=== PATIENT | male | born 1965 | race African-American/Black ===

== ENCOUNTER 2017-02-06 20:23 | Emergency (ER) | payer SELFPAY ==
[~2017-02-06] VITALS: Ht 180.3 cm; Wt 99.8 kg
[2017-02-06] MEDS ORDERED: NKM (21:10)
[2017-02-06] MEDS ORDERED: Norco 5mg/325mg tab ORAL ONE (21:30)
[2017-02-06] MEDS ORDERED: Tetanus/Diptheria/Pertussis Vaccine 0.5ml Syr IM ONE (21:30)
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
[2017-02-06] MEDS ORDERED: cloNIDine 0.2mg Tab ORAL ONE (21:45)
[2017-02-06] MEDS ORDERED: HYDROCODON-ACE1 EA15 ORAL (21:59)
[2017-02-06] MEDS ORDERED: NORVASC10 MG ORAL (21:59)
[2017-02-06 22:15] VITALS: BP 178/98
[2017-02-07 01:01] VITALS: BP 178/98
--- NOTE | 2017-02-07 10:21 | Diagnostic Imaging Report ---
Indications: Left foot trauma, pain Technique: 3 views left foot Findings: Comparison: None Linear lucency traverses the base of the first metatarsal, apparently mildly comminuted. Fracture may extend to the proximal articular surface. No additional fracture, dislocation, joint space widening, soft tissue gas or foreign body, or other acute change identified. IMPRESSION: Apparent fracture base first metatarsal
== END 2017-02-06 22:40 | disposition home or self-care (01) ==
LOC: EMR 22:38
DX: S90.32XA Contusion of left foot, initial encounter (principal); I10 Essential (primary) hypertension; S40.812A Abrasion of left upper arm, initial encounter; Z23 Encounter for immunization; V28.4XXA Motorcycle driver injured in noncollision transport accident in traffic accident, initial encounter; Y92.410 Unspecified street and highway as the place of occurrence of the external cause
CPT/HCPCS: 90471; 90715; 99284

== ENCOUNTER 2018-12-09 18:12 | Emergency (ER) | payer MEDICAID, OTHER ==
[~2018-12-09] VITALS: Ht 177.8 cm; Wt 102.1 kg
[~2018-12-09 18:12] MED LIST: HYDROCODON-ACE1 EA15 ORAL; NKM; NORVASC10 MG ORAL
[2018-12-09] MEDS ORDERED: UNOBMED (18:18)
[2018-12-09 18:23] VITALS: BP 159/102
[2018-12-09] MEDS ORDERED: PERIDEX15 ML MM (18:33)
[2018-12-09] MEDS ORDERED: IBUPROFEN600 MG ORAL (18:33)
[2018-12-09] MEDS ORDERED: AMOXICILLIN500 MG ORAL (18:33)
[2018-12-09] MEDS ORDERED: NORCO 5-325 TA1 EACH ORAL (18:33)
--- NOTE | 2018-12-09 18:41 | NUR ---
ER DISCHARGE NOTE: Patient is cleared to be discharged per ERMD, pt is aox4, on room air, with stable vital signs. pt was given dc and prescription instructions, pt was able to verbalize understanding, pt is able to ambulate with steady gait. pt took all belongings.
--- NOTE | 2018-12-09 18:41 | Emergency Room Report ---
History of Present Illness General Chief Complaint: Pain Source: Medical Record Present Illness HPI Patient presents to the emergency department today complaining of left jaw pain. Patient states that he has history of dental caries. He thinks that his left upper molar is loose. He states that he has been grinding his teeth. He has been under a lot of stress. He is been waking up middle night with dental pain. Denies any difficulty with swallowing. Denies any neck pain chest pain or shortness of breath. Denies any nausea vomiting diarrhea chills. Complains of right-sided facial pain because of this jaw pain. No other complaints were noted. Symptoms noted to be moderate. Patient states that he will see a dentist but would like some pain relief at this time.. No other modifying factors. No other associated signs and symptoms. No other complaints were noted. Allergies: Coded Allergies: No Known Allergies (Unverified , 02/06/17) Patient History Past Surgical History: none Pertinent Family History: none Social History: Denies: smoking, alcohol use, drug use Reviewed Nursing Documentation: PMH: Agreed; PSxH: Agreed Nursing Documentation-PMH Past Medical History: No History, Except For Hx Hypertension: Yes Review of Systems All Other Systems: negative except mentioned in HPI Physical Exam Vital Signs Date Time Temp Pulse Resp B/P (MAP) Pulse Ox O2 Delivery O2 Flow Rate FiO2 12/09/18 18:16 98.2 97 16 95 Room Air 12/09/18 18:23 159/102 Sp02 EP Interpretation: reviewed, normal General Appearance: normal inspection, well appearing, no apparent distress, alert Head: atraumatic Eyes: bilateral eye normal inspection ENT: hearing grossly normal, normal voice, other - Left upper dental caries Neck: normal inspection, full range of motion, supple, no bony tend Respiratory: normal inspection, lungs clear, normal breath sounds, no respiratory distress, no retraction, no wheezing Cardiovascular #1: regular rate, rhythm, no edema Gastrointestinal: normal inspection, normal bowel sounds, non tender, soft, no guarding, no hernia Genitourinary: no CVA tenderness Musculoskeletal: normal inspection, back normal, normal range of motion Neurologic: normal inspection, alert, responsive, speech normal Psychiatric: normal inspection, judgement/insight normal, mood/affect normal Skin: normal inspection, normal color, no rash Medical Decision Making Diagnostic Impression: Primary Impression: Dental caries Additional Impression: TMJ arthritis ER Course Patient presents to the emergency department today complaining of dental pain and jaw pain. Differential considerations include dental abscess, TMJ arthritis , dental caries, headache just name a few. Patient's exam is consistent with dental caries. I feel the patient would benefit from pain medications. Patient was given prescription for pain medications antibiotics and antibiotic mouth rinse. Patient is advised to follow-up with dentist. Patient is advised to follow up with primary doctor in 2-3 days and return the emergency room for any worsening symptoms and as needed. Last Vital Signs Date Time Temp Pulse Resp B/P (MAP) Pulse Ox O2 Delivery O2 Flow Rate FiO2 12/09/18 18:23 98.2 80 16 159/102 95 Room Air Status: improved Disposition: HOME, SELF-CARE Condition: Stable Scripts Chlorhexidine Gluconate (Peridex) 15 Ml Mouthwash 15 ML MM BID for 10 Days, ML Prov: Ismael Bustamante MD 12/09/18 Amoxicillin* (AMOXIL*) 500 Mg Capsule 500 MG ORAL THREE TIMES A DAY, #21 CAP Prov: Ismael Bustamante MD 12/09/18 Ibuprofen* (MOTRIN*) 600 Mg Tablet 600 MG ORAL Q8H PRN for For Pain, #20 TAB 0 Refills Prov: Ismael Bustamante MD 12/09/18 Hydrocodone Bit/Acetaminophen 5-325* (NORCO 5-325*) 1 Each Tablet 1 TAB ORAL Q6H PRN for For Pain, #20 TAB 0 Refills Prov: Ismael Bustamante MD 12/09/18 Patient Instructions: Dental Pain, [id number] Ismael Bustamante MD December 09, 2018 18:41
== END 2018-12-09 18:39 | disposition home or self-care (01) ==
LOC: EMR 18:38
DX: K02.9 Dental caries, unspecified (principal); M26.69 Other specified disorders of temporomandibular joint; I10 Essential (primary) hypertension
CPT/HCPCS: 99282